=== PATIENT | female | born 1985 | race Caucasian/White ===

== ENCOUNTER 2018-08-14 22:29 | Emergency (ER) | payer OTHER ==
[~2018-08-14] VITALS: Ht 162.6 cm; Wt 109.7 kg
[~2018-08-14 22:29] MED LIST: IBU600 MG PO; NORCO 5-325 TA1 EACH PO; PENICILLIN V P250 MG PO
[2018-08-14] MEDS ORDERED: VENTOLIN HFA18 GM INH (22:45)
[2018-08-14] MEDS ORDERED: NORCO 5-325 TA1 EACH PO (23:11)
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
== END 2018-08-14 23:21 | disposition home or self-care (01) ==
LOC: ED 22:29
DX: S83.92XA Sprain of unspecified site of left knee, initial encounter (principal); X58.XXXA Exposure to other specified factors, initial encounter; F31.9 Bipolar disorder, unspecified; F43.10 Post-traumatic stress disorder, unspecified; F32.9 Major depressive disorder, single episode, unspecified; F41.9 Anxiety disorder, unspecified; F17.200 Nicotine dependence, unspecified, uncomplicated; Z88.5 Allergy status to narcotic agent
CPT/HCPCS: 73560; 99283

== ENCOUNTER 2018-12-21 19:54 | Emergency (ER) | payer OTHER ==
[~2018-12-21] VITALS: Ht 162.6 cm; Wt 108.9 kg
[~2018-12-21 19:54] MED LIST changes: +VENTOLIN HFA18 GM INH
--- OUTSIDE RECORDS SUMMARY | 2018-12-21 19:56 | XMS ---
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 Additional care guidelines exist for the following facilities: [facility] ( 10/21/2018 ) Care History Behavioral 08/09/2015 [facility] Hx of Bipolar / Anxiety / Insomnia Medical/Surgical 08/19/2018 [facility] - Patient is currently established with [facility]. If patient is seen in the ED during business hours. Please contact CHWs at [facility]. Care Recommendation: This patient has had 5 or more Emergency Department visits in the last 12 months.\T\nbsp; Patient requires education on the scope and purpose of the ED as an acute care provider not a Primary Care Provider and should not be utilized for chronic conditions.\T\nbsp; These are guidelines and the provider should exercise clinical judgment when providing care. E.D. VISIT COUNT (12 MO.) 3 [facility]. TOTAL 3 NOTE: Visits indicate total known visits. ED/UCC VISIT TRACKING (12 MO.) 12/21/2018 19:55 [facility] [place] TYPE: Emergency COMPLAINT: - FINGER LAC 08/14/2018 22:29 [facility] [place] TYPE: Emergency COMPLAINT: - L KNEE PAIN DIAGNOSES: - Post-traumatic stress disorder, unspecified - Nicotine dependence, unspecified, uncomplicated - Sprain of unspecified site of left knee, initial encounter - Major depressive disorder, single episode, unspecified - Allergy status to narcotic agent status - Exposure to other specified factors, initial encounter - Bipolar disorder, unspecified - Pain in left knee - Anxiety disorder, unspecified 04/08/2018 11:39 [facility] [place] TYPE: Emergency COMPLAINT: - DENTAL PROBLEM DIAGNOSES: - Bipolar disorder, unspecified - Other specified disorders of teeth and supporting structures INPATIENT VISIT TRACKING (12 MO.) No inpatient visits to display in this time frame [email or web address]
[2018-12-21] MEDS ORDERED: VARDENAFIL HCL PO (20:06)
== END 2018-12-21 21:18 | disposition home or self-care (01) ==
LOC: ED 19:54
PROC: 0XQVXZZ Repair Right Little Finger, External Approach (ICD-10-PCS; principal; 2018-12-21)
DX: S61.216A Laceration without foreign body of right little finger without damage to nail, initial encounter (principal); F17.200 Nicotine dependence, unspecified, uncomplicated; Z91.030 Bee allergy status; Z88.6 Allergy status to analgesic agent; Z79.899 Other long term (current) drug therapy; W45.8XXA Other foreign body or object entering through skin, initial encounter
CPT/HCPCS: 12001; 99282-25

== ENCOUNTER 2019-05-17 21:07 | Emergency (ER) | payer OTHER ==
[~2019-05-17] VITALS: Ht 162.6 cm; Wt 108.9 kg
[~2019-05-17 21:07] MED LIST changes: +VARDENAFIL HCL PO
--- OUTSIDE RECORDS SUMMARY | 2019-05-17 21:10 | XMS ---
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 Additional care guidelines exist for the following facilities: [facility] ( 10/21/2018 ) Care History Medical/Surgical 08/19/2018 [facility] - Patient is currently established with [facility]. If patient is seen in the ED during business hours. Please contact CHWs at [facility]. Care Recommendation: This patient has had 5 or more Emergency Department visits in the last 12 months.\T\nbsp; Patient requires education on the scope and purpose of the ED as an acute care provider not a Primary Care Provider and should not be utilized for chronic conditions.\T\nbsp; These are guidelines and the provider should exercise clinical judgment when providing care. Behavioral 08/09/2015 [facility] Hx of Bipolar / Anxiety / Insomnia E.D. VISIT COUNT (12 MO.) 3 [facility]. TOTAL 3 NOTE: Visits indicate total known visits. 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
[2019-05-17] MEDS ORDERED: VIRTUSSIN AC L118 ML PO (22:53)
--- NOTE | 2019-05-18 11:10 | EKG ---
[facility] [address] [place], [place] [address] Signed Normal sinus rhythm Normal ECG No previous ECGs available Confirmed by RIGOBERTO YARBROUGH DO ([id number]) on 05/18/2019 11:10:34 AM Electronically Signed By: RIGOBERTO YARBROUGH DO 05/18/19 1110 PATIENT NAME: MIGUEL BOLANOS Electrocardiogram DATE OF : 87 PHYSICIAN: RIGOBERTO YARBROUGH DO REPORT #: [id number] REPORT IS CONFIDENTIAL AND NOT TO BE RELEASED WITHOUT AUTHORIZATION
== END 2019-05-17 23:30 | disposition home or self-care (01) ==
LOC: ED 21:07
DX: R05 Cough (principal); R07.89 Other chest pain; F31.9 Bipolar disorder, unspecified; F43.10 Post-traumatic stress disorder, unspecified; F17.200 Nicotine dependence, unspecified, uncomplicated; Z88.5 Allergy status to narcotic agent; Z91.030 Bee allergy status
CPT/HCPCS: 71046; 93005; 93010; 99283-25

== ENCOUNTER 2019-05-22 08:59 | Emergency (ER) | payer OTHER ==
[~2019-05-22] VITALS: Ht 162.6 cm; Wt 108.9 kg
[~2019-05-22 08:59] MED LIST changes: +VIRTUSSIN AC L118 ML PO
--- OUTSIDE RECORDS SUMMARY | 2019-05-22 09:02 | XMS ---
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 Security Cissp Events No recent Security Events currently on file CRITERIA MET - [facility] - Has Care Guidelines - [facility] - 2 Visits in 30 Days CARE PROVIDERS FABIO CAICEDO [facility] Current PHONE: Unknown Foreign [place] Internal Medicine: Pulmonary Disease 08/19/2018-Current PHONE: Unknown Guidelines Source: [email or web address] Guidelines Date: 09/05/2018 Care Coordination: Receives mental health services with [email or web address].\T\nbsp; Please contact [email or web address] for mental health concerns.\T\nbsp; Zia/Chance Puente:\T\nbsp; [phone]\T\nbsp; Javier:\T\nbsp; [phone]. Additional care guidelines exist for the following facilities: [facility] ( 10/21/2018 ) Care History Behavioral 08/09/2015 [facility] Hx of Bipolar / Anxiety / Insomnia Medical/Surgical 05/19/2019 [facility] Patient scheduled for follow up with Dr. Chino at 2:40 pm 05/22/2019. 08/19/2018 [facility] - Patient is currently established with [facility]. If patient is seen in the ED during business hours. Please contact CHWs at [facility]. Care Recommendation: This patient has had 5 [...] providing care. E.D. VISIT COUNT (12 MO.) [address] [facility]. TOTAL 4 NOTE: Visits indicate total known visits. ED/UCC VISIT TRACKING (12 MO.) 05/22/2019 09:00 [facility] [place] TYPE: Emergency COMPLAINT: - HIVES, SORE THROAT, COUGH, HEADACHES 05/17/2019 21:08 [facility] [place] TYPE: Emergency COMPLAINT: - HEAVY CHEST, DIFFICULTY BREATHING, COUGH DIAGNOSES: - Bee allergy status - Allergy status to narcotic agent status - Nicotine dependence, unspecified, uncomplicated - Cough - Bipolar disorder, unspecified - Post-traumatic stress disorder, unspecified - Other chest pain 12/21/2018 19:55 [facility] [place] TYPE: Emergency COMPLAINT: - FINGER LAC DIAGNOSES: - Nicotine dependence, unspecified, uncomplicated - Bee allergy status - Oth foreign body or object entering through skin, init - Allergy status to analgesic agent status - 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 [place] TYPE: Emergency COMPLAINT: - L KNEE [...] visits to display in this time frame [email or web address]
== END 2019-05-22 09:23 | disposition home or self-care (01) ==
LOC: ED 08:59
DX: J02.9 Acute pharyngitis, unspecified (principal)

== ENCOUNTER 2019-05-27 08:58 | Inpatient (IN) | payer OTHER ==
[~2019-05-27] VITALS: Ht 162.6 cm; Wt 115.2 kg
--- OUTSIDE RECORDS SUMMARY | 2019-05-27 09:00 | XMS ---
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 No recent Security Events currently on file CRITERIA MET - [facility] - Has Care Guidelines - [facility] - 2 Visits in 30 Days CARE PROVIDERS FABIO CAICEDO [facility] Current PHONE: Unknown Foreign [place] Internal Medicine: Pulmonary Disease 05/23/2019-Current PHONE: Unknown Guidelines Source: [employer] [facility] Guidelines Date: 09/05/2018 Care Coordination: Receives mental health services with [employer].\T\nbsp; Please contact [employer] for mental health concerns.\T\nbsp; Zia/Chance Puente:\T\nbsp; \T\nbsp; Javier:\T\nbsp; [phone]. Additional care guidelines exist for the following facilities: [facility] ( 10/21/2018 ) Care History Medical/Surgical 05/19/2019 [facility] Patient scheduled for follow up with Dr. Chino at 2:40 pm 05/22/2019. 08/19/2018 [facility] - Patient is currently established with [facility]. If patient is seen in the ED during business hours. Please contact CHWs at [facility]. Care Recommendation: This patient has had 5 or more Emergency Department visits in the last 12 months.\T\nbsp; Patient requires education on the scope and purpose of the ED as an acute care provider not a Primary Care Provider and should not be utilized for chronic conditions.\T\nbsp; These are guidelines and the provider should exercise clinical judgment when providing care. Behavioral 08/09/2015 [facility] Hx of Bipolar / Anxiety / Insomnia E.D. VISIT COUNT (12 MO.) 5 [facility]. TOTAL 5 NOTE: Visits indicate total known visits. ED/UCC VISIT TRACKING (12 MO.) 05/27/2019 08:58 [facility] [place] TYPE: Emergency COMPLAINT: - SOB/COUGH 05/22/2019 09:00 [facility] [place] TYPE: Emergency COMPLAINT: - SORE THROAT, COUGH, HEADACHES,MSE TO CLINIC DIAGNOSES: - Acute pharyngitis, unspecified 05/17/2019 21:08 [facility] [place] TYPE: Emergency [...] status to analgesic agent status - Other mcfp (current) drug therapy - Lac w/o fb [...] visits to display in this time frame [id number]
--- NOTE | 2019-05-27 14:37 | NUR ---
REPORT REC'D FROM ROSALBA IN ER. PENDING PATIENT ARRIVAL.
--- NOTE | 2019-05-27 15:48 | NUR ---
PATIENT ARRIVES TO CCU VIA STRETCHER AND ABLE TO MOVE OVER TO CCU BED. PT IS VERY TACHYPNEIC, BREATHING 28-31. PT STATES SHE FEELS LIKE SOMETHING IS SITTING ON HER CHEST AND HEAVY. PT REPORTS QUITTING SMOKING 2 WEEKS AGO. PT DENIES HAVING ANY PRODUCTION TO HER COUGH. AFEBRILE UPON ARRIVAL. IVF STARTED AT 75 ML/HR. HR 90-110s. CONTINUE TO MONITOR.
--- NOTE | 2019-05-27 16:22 | NUR ---
RT IN ROOM GIVING NEB TX FOR PATIENT. HR UP TO 110S AFTER NEB TX. PT REQUESTING COFFEE. LAST BP 123/66. SP02 IS 94% ON 4 L NC. CONTINUE TO MONITOR.
--- NOTE | 2019-05-27 16:33 | NUR ---
PATIENT SHOWED HOW TO ORDER FOOD FROM [facility] AND INSTRUCTED TO CALL IF SHE NEEDS HELP.
--- NOTE | 2019-05-27 17:05 | NUR ---
MED REC COMPLETE
--- NOTE | 2019-05-27 19:30 | NUR ---
PT REPORT RECIEVED, IN ROOM TO COMPLETE ASSESSMENT. PT RESPIRATORY RATE IS IN THE MID 30'S. PT STATES SHE IS FEELING ANXIOUS AT THIS TIME. GIVEN PRN ANXIETY MEDICATION AT THIS TIME. PTS LUNGS SOUND COARSE IN BOTH BASES. PT HAS FREQUENT NON PRODUCTIVE COUGH WELL. ASSISTED PT WITH REPOSITIONING IN BED, PLAN OF CARE FOR EVENING DISCUSSED.
--- NOTE | 2019-05-27 20:03 | NUR ---
RT IN ROOM AT THIS TIME TO GIVE BREATHING TREATMENT.
--- NOTE | 2019-05-27 20:24 | NUR ---
IN ROOM FOR MEDICAITON ADMINISTRATION. PT STATES SHE IS FEELING LESS ANXIOUS AFTER PRN MEDICATION FOR ANXIETY. RESPIRATORY RATE IN THE MID 20S AT THIS TIME. SPO2 AT 93 PERCENT ON 4 L NC. WILL CONTINUE TO CLOSELY MONITOR
--- NOTE | 2019-05-27 20:42 | NUR ---
pt is feeling anxious at this time, breathing heavily, and is stating she is too hot. I asked if she would like a cool wash cloth and to take some deep breaths because that can help put a person at ease. She said she was fine without the cool cloth.
--- NOTE | 2019-05-27 21:19 | NUR ---
PT ASSISTED TO THE CHAIR PER HER REQUEST. PT TOLERATED WELL. PT ALSO PROVIDED WITH COFFEE PER HER REQUEST. PT'S NURSE NOTIFIED BEFORE GIVING COFFEE AND LETTING HER GET TO THE CHAIR. CALL LIGHT PROVIDED TO PT, BREAKS ON THE CHAIR.
--- NOTE | 2019-05-27 21:47 | NUR ---
PT COUGHING, GIVEN PRN MEDICATION AT THIS TIME.
--- NOTE | 2019-05-27 22:30 | NUR ---
PT AWAKE IN ROOM, RESTING IN RECLINER. DENIES ANY NEEDS AT THIS TIME. CALL LIGHT WITHIN REACH.
--- NOTE | 2019-05-28 00:18 | NUR ---
IN ROOM FOR ASSESSMENT. PT RESTING IN RECLINER. HEART RATE, RESPIRATORY RATE AND EFFORT HAVE ALL DECREASED. PT DENIES ANY SIGNIFICANT PAIN OR DISCOMFORT AT THIS TIME. ASSISTED WITH REPOSITIONING. NO FURTHER NEEDS.
--- NOTE | 2019-05-28 01:57 | NUR ---
IN ROOM FOR MEDICATION ADMINISTRATION. PT SLEEPING. BREATHING EVEN AND UNLABORED AT THIS TIME RR=26. O2 SATURATIONS AT 93 PERCENT ON 4 L NC.
--- NOTE | 2019-05-28 02:57 | NUR ---
PT REMAINS RESTING IN CHAIR WITH EYES CLOSED. BREATHING EVEN AND UNLABORED. O2 SATURATIONS UP TO 96 PERCENT ON 4 L NC. HER RATE AT 70 BPM. CALL LIGHT WITHIN REACH. WILL CONTINUE TO MONITOR.
--- NOTE | 2019-05-28 04:21 | NUR ---
IN ROOM FOR ASSESSMENT. PT WORK OF BREATH HAS IMPROVED, PT DENIES FEELING SHORT OF BREATH AT THIS TIME. AMBULATED TO THE BATHROOM ON 4 L NC AND SATS REMAINED ABOVE 90 PERCENT. NO EXERTIONAL SHORTNESS OF BREATH NOTED. PT GIVEN PRN MEDICATION FOR COUGH (SEE EMAR). RESTING IN RECLINER ALL PERSONAL ITEMS AND CALL LIGHT WITHIN REACH.
--- NOTE | 2019-05-28 05:34 | NUR ---
LAB IN ROOM FOR AM BLOOD DRAW
--- NOTE | 2019-05-28 06:37 | NUR ---
PT RESTING WITH EYES CLOSED IN RECLINER. CALL LIGHT WITHIN REACH. NO ASSESSED NEEDS.
--- NOTE | 2019-05-28 07:30 | NUR ---
REPORT RECIEVED. PATIENT IS IN CHAIR. STATES SHE FEELS BETTER TODAY.
--- NOTE | 2019-05-28 08:00 | NUR ---
ASSESSMENT DONE. ENC USE OF I.S AND CORNET. HAS OCC COUGH. TALKED WITH PATIENT ABOUT POC FOR DAY. IS UNDERSTANDING.
--- NOTE | 2019-05-28 08:30 | NUR ---
ROUTINE MEDS GIVEN WELL VISTARIL AND COUGH MEDICATION. SITTING UP IN CHAIR FOR BREAKFAST.
--- NOTE | 2019-05-28 09:30 | NUR ---
BACK TO BED. HAS INCREASED WORK OF BREATHING WITH EXERTION.
--- NOTE | 2019-05-28 10:30 | NUR ---
DR. SHEPARD HERE TO SEE PATIENT. ORDERS RECIEVED TO TRANSFER TO MED-SURG.
--- NOTE | 2019-05-28 11:20 | NUR ---
REPORT TO MED-SURG.
--- NOTE | 2019-05-28 11:35 | NUR ---
TO MED-SURG VIA CHAIR.
--- NOTE | 2019-05-28 11:40 | NUR ---
33YR OLD WOMAN TRANSFERRED FROM ICU TO ROOM 119 VIA CHAIR. PT IS ALERT, ORIENTED, LOOKING FORWARD TO LUNCH, CONT. TO HAVE SOB WITH EXHERTION. O2 4L/NC, NO DISTRESS AT THIS TIME, ORIENTED TO ROOM AND CALL LIGHT, DENIES ANY NEEDS, LUNCH TRAY HAS ARRIVED. RT HERE ALSO TO SEE PT.
--- NOTE | 2019-05-28 13:36 | NUR ---
SBA INTO BATHROOM TO VOID 400ML YELLOW URINE, COUGHING WITH ACTIVITY, REQUESTED ROBITUSSIN FOR COUGH, REQUESTED TO LAY DOWN ON BED FOR A BIT. CALL LIGHT IN EASY REACH. OXIMETER 93% AFTER AMBULATING TO BATHROOM, O2 @ 2L/NC.
--- NOTE | 2019-05-28 17:30 | NUR ---
ATE 100% OF DINNER AND SANDWICH ORDERED FOR SNACK LATER TONIGHT AND PLACED INTO FRIDGE, SALINE NASAL SPRAY GIVEN TO PT FOR C/O DRY NOSE,
--- NOTE | 2019-05-28 18:49 | NUR ---
PT SOB WITH MINIMAL EXHERTION, O2 @ 4L/NC, MAINTAINS OXIMETER 91-94%, RESP 24-30 EVEN AT REST, OCCASIONAL DRY COUGH, ROBITUSSION X1, VISTARIL GIVEN X1 FOR ANXIETY. STATES SHE WORRIES ABOUT FAMILY. SBA ONLY WHEN PT AMBULATES INTO BATHROOM, ON MENSES. DENIES ANY NEEDS AT THIS TIME, PLAYING GAMES ON PHONE.
--- NOTE | 2019-05-28 19:20 | NUR ---
SHIFT REPORT RECEIVED FROM DAYSHIFT RN KEYANA AT BEDSIDE. PT AWAKE ADN RESTING IN BED, 4LOXYMASK IN PLACE. PT REPORTING HEADACHE, THIS RN TO ADMINISTER PRN TYLENOL AFTER SHIFT REPORT. PT AGREES AND VERBALIZES PLAN. NO FURTHER REQUESTS, CALL LIGHT IN REACH. BOARD UPDATED.
--- NOTE | 2019-05-28 19:50 | NUR ---
PT CONTINUES TO REPORT PAIN R/T HEADACHE, RATES PAIN 7/10. PRN TYLENOL ADMINISTERED (SEE EMAR). COOL RAG AND FRESH ICE ALSO GIVEN. EDUCATION PROVIDED ON IMPORTANCE TO REMAIN O2 THERAPY IN PLACE WHEN AMBULATING TO THE BATHROOM. PT VERBALIZED UNDERSTANDING. CALL LIGHT IN REACH.
--- NOTE | 2019-05-28 21:59 | NUR ---
ASSESSMENT COMPLETE, SCHEDULED MEDS GIVEN ALONG WITH PRN COUGH AND ANXIETY MEDS (SEE EMAR). VSS, PT ON 4L HUMIDIFIED O2 VIA NC, LUNG SOUNDS CLEAR AND DIMINISHED. NO DISTRES NOTED, RR 28, REMAINS WNL R/T PT'S TRENDING RR. PT DENIES CHEST PAIN, REPORTS EASE OF BREATHING WHEN HOB ELEVATED. NO FURTHER NEEDS AT THIS TIME. IV SITE WNL, FRESH WATER AT BEDSIDE. CALL LIGHT IN REACH.
--- NOTE | 2019-05-29 00:20 | NUR ---
PT RESTING IN BED, RT IN ROOM FOR SCHEDULED BREATHING TREATMENT.
--- NOTE | 2019-05-29 02:30 | NUR ---
ASSESSMENT COMPLETE, SCHEDULED IV STERIOD ADMINISTERED (SEE EMAR). IV SITE WNL, FLUSHES EASILY. PT DROWSY, BUT FOLLOWS COMMANDS. DENIES PAIN OR NEEDS AT THIS TIME. 4LOXYMASK IN PLACE, NO DISTRESS NOTED. RR 26. BOARD UPDATED, ROOM TIDIED. CALL LIGHT IN REACH.
--- NOTE | 2019-05-29 05:16 | NUR ---
PT RESTING IN BED WITH EYES CLOSED, RR 22. 4LOXYMASK IN PLACE, NO DISTRESS NOTED AT THIS TIME. PT APPEARS COMFORTABLE. CALL LIGHT IN REACH.
--- NOTE | 2019-05-29 05:25 | NUR ---
PT HAD A LATA, SLEPT OFF AND ON THIS SHIFT. VSS, PT ON 4LNC/OXYMASK WITH ELEVATED RR. LUNG SOUNDS CLEAR WITH INTERMITTENT WHEEZES. SCHEDULED BREATHING TREATMENTS. SBA WITH AMBULATION, USES CALL LIGHT APPROPERIATELY. REGULAR DIET, TOLERATING WELL, NO NAUSEA REPORTED. PAIN CONTROLLED WIHT PRN TYLENOL. SALINE LOCKED, IV SITE WNL. VOIDING QS, NO BM THIS SHIFT.
--- NOTE | 2019-05-29 06:20 | NUR ---
VSS, PT ON 4LOXYMASK. RR 22, NO DISTRESS OR SIGNS OF PAIN NOTED. PT DENIES PAIN OR FURTHER NEEDS. DENIES NEED TO VOID, CALL LIGHT IN REACH.
--- NOTE | 2019-05-29 07:31 | NUR ---
Patient in bed with eyes closed on 4L NC. Bed rails up X2 and bed alarm activated. Call light in reach.
--- NOTE | 2019-05-29 08:12 | NUR ---
PT SLEEPING, DROWSY WHEN WOKE. LEFT PT RESTING IN SEMI-FOWLERS POSITION WITH FRESH ICE WATER. RT IN ROOM COMPLETEING BREATHING TREATMENT.
--- NOTE | 2019-05-29 09:04 | NUR ---
PT COMPLAINS OF NAUSEA. ZOFRAN GIVEN
--- NOTE | 2019-05-29 09:45 | NUR ---
Patient awake lying in bed. Reports no pain currently. States that she is no longer feeling nauseous. 4l O2/NC. Assessment complete. Medications administered by student nurse. Pateint reports no needs at this time. Call light in reach.
--- NOTE | 2019-05-29 11:53 | NUR ---
PATIENT LYING IN BED. NO COMPLAINTS OF PAIN. TALKING ON PHONE. REPORTS NO NEEDS AT THIS TIME. 4L NC. CALL LIGHT WITHIN REACH.
--- NOTE | 2019-05-29 11:57 | NUR ---
PATIENT UP IN CHAIR RECIEVING BREATHING TREATMENT. SHOWERED WITH MINIMAL ASSIST. 4L NC IN PLACE. PATIENT REPORTS PAIN WITH COUGHING. CALL LIGHT WITHIN REACH.
--- NOTE | 2019-05-29 12:35 | NUR ---
PT COMPLAINED OF DISCOMFORT AROUND IV SITE. REQUETSED FOR NEW PLACEMENT ON DIFFERENT SIDE. IV ATTEMPT UNSUCCESSFUL, PRIMARY NURSE ALERTED AND SUCCESSFUL WITH NEW START. PREVIOUS IV DISCONTINUED. PT LEFT IN CHAIR RESTING
--- NOTE | 2019-05-29 13:52 | NUR ---
Patient up in chair. Complains of headache. Tylenol administered. Patient recieving 3L O2 NC. Student nurse taking patient for walk.
--- NOTE | 2019-05-29 14:08 | NUR ---
PT UP AMBULATING IN GONZALEZ WITH SN. SHE SEEMED TO ENJOY BEING UP, GAVE ENCOURAGEMENT, SHE SMILED WILL CONTINUE TO FOLLOW NEEDED
--- NOTE | 2019-05-29 14:15 | NUR ---
TALKED WITH PT YESTERDAY ABOUT VISITING WITH A CHW AND SHE IS AGREEABLE WITH THIS. THIS AM TALKED WITH CHW AND SHE SAID SHE WOULD GLADLY SHE HER. REFERRAL FORM SENT
--- NOTE | 2019-05-29 17:09 | NUR ---
PT REPORTS HEADASCHE IS NOT RELIEVED BY TYLENOL. DR SHEPARD NOTIFIED. NEW ORDER FOR MOTRIN PLACED. VERIFIED BY READ BACK OVER PHONE.
--- NOTE | 2019-05-29 17:32 | NUR ---
PT COMPLAINS OF PAIN FROM H/A, NECK AND SINUSES. GIVEN MOTRIN FOR RELIEF. PATIENT LEFT UP IN CHAIR EATING DINNER WATCHING TV WITH CALL LIGHT IN REACH.
--- NOTE | 2019-05-29 18:41 | NUR ---
PATEINT REPORTING NAUSEA AND HEADACHE. ZOFRAN ADMINISTERED PER ORDER. PRESCHOOL TEACHER'S ASSISTANT AMBULATING WITH PATIENT IN HALLWAY.
--- NOTE | 2019-05-29 18:51 | NUR ---
PT UP TO WALK TWO LAPS, TOLERATED WELL. 02 SATS 96% UPON RETURN. PT CONTENT, LEFT IN CHAIR DRINKING COFFEE AND WATCHING TV WITH CALL LIGHT IN REACH.
--- NOTE | 2019-05-29 19:15 | NUR ---
SHIFT REPORT RECIEVED FROM KATRIN HAYWOOD. PT STATES HER IV HURTS. IV FLUSHED. NO SWELLING OR REDNESS. ICE PACK PROVIDED. NO OTHER NEEDS AT THIS TIME. CALL LIGHT IN REACH.
--- NOTE | 2019-05-29 20:37 | NUR ---
SCHEDULED MEDS PROVIDED. PRN ANTI ANXIETY AND PAIN MED PROVIDED, HEADACHE 09/23. LUNGS CLEAR IN UPPERS AND DIMINISHED IN LOWERS. ICE AND ICE WATER PROVIDED. ASSESSMENT, VS AND I&O COMPLETED. PRINT EDUCATION MATERIAL PROVIDED ON RESP FAILURE AND ASTHMA AT PT REQUEST. IV CDI, WNL, FLUSHED WELL. TINGLING IN BOTH HANDS. NO OTHER NEEDS, CALL LIGHT IN REACH.
--- NOTE | 2019-05-29 21:50 | NUR ---
BROUGHT PT A BAG WITH HAIRBRUSH, EAR PLUGS AND EYE MASK PER HER REQUEST. SHE NEEDS NOTHING MORE AT THIS TIME.
--- NOTE | 2019-05-29 22:01 | NUR ---
PT CALLED ASKING FOR HELP UPON ENTERING THE ROOM SHE WAS COUGHING. PUT HER ON PULSEOX AND SHE WAS AT 96%. SHE STATES SHE FEELS A LUMP IN HER THROAT THAT SHE CANNOT GET IT UP. HOWEVER SHE IS ABLE TO COUGH ON HER OWN AND NC IS IN PLACE. PRIMARY RN OKSANA ENTERED THE ROOM AND OFFERED HER A WARM DRINK. HER COUGHING HAS CALMED DOWN.
--- NOTE | 2019-05-29 22:36 | NUR ---
PT RESTING IN BED, EYES CLOSED. NC 1L. RR 16, EVEN, UNLABORED. CALL LIGHT IN REACH.
--- NOTE | 2019-05-30 00:32 | NUR ---
PT RESTING IN BED, EYES CLOSED. RR 14, EVEN, UNLABORED. NC 1L. CALL LIGHT IN REACH.
--- NOTE | 2019-05-30 02:42 | NUR ---
PT RESTING IN BED, EYES CLOSED. RR 16, EVEN, UNLABORED. NC@1L. CALL LIGHT IN REACH.
--- NOTE | 2019-05-30 03:59 | NUR ---
PT CALLS TO ASK FOR COUGH MEDICINE. PRN COUGH MEDICINE PROVIDED. ASSESSMENT COMPLETED. COFFEE PROVIDED. NO OTHER NEEDS. CALL LIGHT IN REACH.
--- NOTE | 2019-05-30 04:58 | NUR ---
PT CALLS TO STATE SHE HAS BACK PAIN AND ANXIETY. BACK PAIN 09/23. PRN PAIN AND ANXIETY MEDS PROVIDED. PT MOVES TO SIT IN CHAIR. NO OTHER NEEDS. CALL LIGHT IN REACH.
--- NOTE | 2019-05-30 05:22 | NUR ---
PT WALKED 2 LAPS AROUND UNIT WITHOUT O2 ON. SPO2 95, RA. PT TITRATED OFF O2, WILL MONITOR SPO2. NO OTHER NEEDS. CALL LIGHT IN REACH.
--- NOTE | 2019-05-30 05:36 | NUR ---
PT HAS SLEPT OFF AND ON TONIGHT. PT WALKED LAPS AROUND UNIT. PT TITRATED OFF O2, CURRENTLY SPO2 @94% RA. LUNG SOUNDS DIMINISHED IN LOWER LOBES. PAIN IN NECK, BACK MANAGED WITH PRN PAIN MEDS. ANXIETY MANAGED WITH PRN ANXIETY MED. IV WNL, CDI, FLUSHED WELL. PT REPORTS TINGLING IN BOTH HANDS, CMS INTACT. PT TOLERATED MEDS WELL. GCS 15, A&O X4. VSS, UO SUFFICIENT.
--- NOTE | 2019-05-30 06:24 | NUR ---
PT SITTING IN CHAIR, WATCHING TV. SPO2 95%, RA. PT DENIES SOB AND PAIN. NO OTHER NEEDS, CALL LIGHT IN REACH.
--- NOTE | 2019-05-30 07:29 | NUR ---
Patient up in chair talking on phone. Respirations equal and unlabored on RA. Reports moderate coughing episodes last night and states she has been using her incentive spirometer and accapella. Call light in reach.
--- NOTE | 2019-05-30 07:56 | NUR ---
PT COMPLAINS OF SORE THROAT DUE TO COUGHING. PAIN IS TOLERABLE/ NO MANAGEMENT NEEDED AT THIS TIME. PT CONTENT AND RESTING IN CHAIR SPEAKING WITH FAMILY ON PHONE. COFFEE AND WATER REQUESTED, NO FUTHER NEEDS AT THIS TIME.
--- NOTE | 2019-05-30 09:41 | NUR ---
Patient up in chair talking with student nurse. Reports no pain. Sats of 94 on RA. Assesment completed and student nurse is planning to walk with patient in [place].
--- NOTE | 2019-05-30 10:03 | NUR ---
PT UP FOR WALK WITH STANDBY ASSIST, ONE LAP AROUND GONZ[place]. PT TOLERATED WELL, 02 SATS 93% UPON RETURN TO ROOM. PT IN CHAIR WATCHING TV USING INCENTIVE SPIROMETER. NO FURTHER NEEDS AT THIS TIME.
--- NOTE | 2019-05-30 11:58 | NUR ---
PT REQUESTED WATER AND MEAL. PATIENT STATES " I AM FEELING DEPRESSED", WORRIED ABOUT POSSIBILITY OF NOT BEING ABLE TO GO HOME TODAY. REASSURED PT SHE WOULD BE SEEN BY DOCTOR AT SOME POINT TODAY. REMAINS IN CHAIR WATCHING TV, USING PHONE WITH CALL LIGHT IN REACH. RESPIRATIONS ARE EVEN AND UNLABORED.
--- NOTE | 2019-05-30 12:08 | NUR ---
PT SITTING IN CHAIR AND SEEMS TO BE ENJOYING THE SUNSHINE. NOTICED HER O2 WAS OFF-SHE WAS EXCITED AND SAID SHE IS FEELING MUCH BETTER. SHE THANKED ME FOR COMING IN, GAVE BLESSING. WILL FOLLOW NEEDED
--- NOTE | 2019-05-30 12:30 | NUR ---
PT STATES FEELING ANXIOUS, AND NO CURRENT PAIN. ANXIETY MEDICATON PROVIDED. PT EATING LUNCH WATCHING TV, NO FURTHER REQUESTS AT THIS TIME.
[2019-05-30] MEDS ORDERED: DOXYCYCLINE HY100 MG PO (12:56)
[2019-05-30] MEDS ORDERED: IPRAT-ALBUT 0.5-3 ML INH (12:57)
[2019-05-30] MEDS ORDERED: NICOTINE1 EAC1 TD (12:58)
--- NOTE | 2019-05-30 12:58 | NUR ---
ROUNDED WITH DR SHEPARD. PLAN OF CARE DISCUSSED.
[2019-05-30] MEDS ORDERED: PREDNISONE20 MG PO (12:59)
[2019-05-30] MEDS ORDERED: VENTOLIN HFA18 GM INH (14:08)
[2019-05-30] MEDS ORDERED: TESSALON PERLE100 MG PO (14:08)
--- NOTE | 2019-05-30 14:21 | NUR ---
Patient completed ambulating halls with student nurse. Patient changed into her own clothes preparing for discharge. D/C'd IV. IV WNL. Provided discharge education, patient verbalized understanding. Vitals taken prior to discharge. Patient offered flu shot yet declined.
== END 2019-05-30 14:10 | disposition home or self-care (01) | DRG 193 ==
LOC: ED 08:58 → CCU 14:15 → MS 05-28 11:35
PROVIDERS: ADMIT Internal Medicine
DX: J13 Pneumonia due to Streptococcus pneumoniae (principal); J96.01 Acute respiratory failure with hypoxia; J45.21 Mild intermittent asthma with (acute) exacerbation; Z68.41 Body mass index [BMI] 40.0-44.9, adult; F17.210 Nicotine dependence, cigarettes, uncomplicated; E66.01 Morbid (severe) obesity due to excess calories; F31.9 Bipolar disorder, unspecified; F41.9 Anxiety disorder, unspecified; F42.9 Obsessive-compulsive disorder, unspecified; F43.10 Post-traumatic stress disorder, unspecified; F98.8 Other specified behavioral and emotional disorders with onset usually occurring in childhood and adolescence; Z79.899 Other long term (current) drug therapy; Z88.5 Allergy status to narcotic agent
CPT/HCPCS: 36415; 71046; 71260; 80053; 82803; 83605; 85007; 85025; 85032; 85379; 94640; 94664; 94667; 94668; 94760; 94761; 96361; 99285-25; 99406; J1650; J2405; J2930; J7030; J7121; Q0177; Q9967